=== PATIENT | female | born 1995 | race Hispanic/Latino ===

== ENCOUNTER 2017-10-29 09:28 | Emergency (ER) | payer OTHER ==
[2017-10-29 09:34] VITALS: TEMP 97.9; O2SAT 99; BMI 23.6
[2017-10-29] MEDS ORDERED: Sodium Chloride 0.9% 1,000 ML IV STA ×2 (10:02→13:12)
--- NOTE | 2017-10-29 10:07 | ED PDOC ---
HPI: General Adult Time Seen by Provider: 10/29/17 09:36 Chief Complaint (Nursing): Abdominal Pain History Per: Patient Additional Complaint(s): Pt. states this morning at 0400 she woke up from sleep with RUQ pain and at approximately 0600 she developed nausea and 1 episode of non-bloody/non-bilious vomiting. Nausea continued and she has been dry heaving but no vomiting since. Furthermore pt. also states she did eat latvian toast and latvian fries with vinegar at 0000 and went to sleep 1 hour after eating. Last BM was yesterday and was normal. Denies fever, chest pain, hematemesis, previous abdominal surgeries, cough, diarrhea, melena, hematochezia, BRBPR. Past Medical History Reviewed: Historical Data, Nursing Documentation, Vital Signs Vital Signs: Last Vital Signs Temp 97.9 F 10/29/17 09:33 Pulse 92 H 10/29/17 14:00 Resp 18 10/29/17 14:00 BP 110/70 10/29/17 14:00 Pulse Ox 99 10/29/17 14:00 - Surgical History Surgical History: No Surg Hx - Family History Family History: States: No Known Family Hx - Home Medications Home Medications: Ambulatory Orders Medication Instructions Recorded Famotidine [Pepcid] 20 mg PO DAILY PRN #10 tab 10/29/17 Ondansetron ODT [Zofran ODT] 4 mg PO TID #10 odt 10/29/17 - Allergies Allergies/Adverse Reactions: Allergies Allergy/AdvReac Type Severity Reaction Status Date / Time No Known Allergies Allergy Verified 10/29/17 10:01 Review of Systems ROS Statement: Except As Marked, All Systems Reviewed And Found Negative Gastrointestinal: Positive for: Nausea, Vomiting, Abdominal Pain Physical Exam - Physical Exam Appears: Positive for: Well, Non-toxic, No Acute Distress Head Exam: Positive for: ATRAUMATIC, NORMAL INSPECTION, NORMOCEPHALIC Skin: Positive for: Normal Color, Warm. Negative for: Rash Eye Exam: Positive for: Normal appearance. Negative for: Scleral icterus (b/l) ENT: Positive for: Normal ENT Inspection Neck: Positive for: Normal, Painless ROM Cardiovascular/Chest: Positive for: Chest Non Tender, Tachycardia. Negative for : Murmur Respiratory: Positive for: Normal Breath Sounds. Negative for: Respiratory Distress Gastrointestinal/Abdominal: Positive for: Soft, Tenderness (Mild RUQ tenderness) , Other (+Elizalde's sign). Negative for: Organomegaly, Guarding Back: Positive for: Normal Inspection. Negative for: L CVA Tenderness, R CVA Tenderness Neurologic/Psych: Positive for: Alert, Oriented - Laboratory Results Result Diagrams: 10/29/17 10:30 10/29/17 10:30 - ECG ECG: Positive for: Interpreted By Me O2 Sat by Pulse Oximetry: 99 - Progress ED Course And Treament: Labs, Abd US, pepcid 40mg IV, zofran 4mg IV, IV NS bolus x 1, VBG ordered. Patient placed on manager endoscopy due to tachycardia. Patient kept NPO. 1208 EKG: SR at [address]-T wave changes 1310 On re-evaluation, pt. reports feeling better but is requesting additional IV fluids as it made her feel better. Abd pain and nausea have resolved. IV NS bolus x 1 ordered. 1326 Abd US: Mild splenomegaly. . Mild fullness right renal collecting system of prevoid with resolution postvoid. No CVA tenderness b/l. Abd soft and non-tender to deep palpation. Reports no abdominal pain or back/flank pain. Disposition - Clinical Impression Clinical Impression: Abdominal pain - Patient ED Disposition Is Patient to be Admitted: No - Disposition Referrals: [facility] [Outside] [facility] [place] [Outside] Disposition: Routine/Home Disposition Time: 13:26 Condition: IMPROVED Additional Instructions: Return to ED immediately if symptoms return or worsen. Follow up with [facility] for further evaluation. Prescriptions: Famotidine [Pepcid] 20 mg PO DAILY PRN #10 tab PRN Reason: Dyspepsia Ondansetron ODT [Zofran ODT] 4 mg PO TID #10 odt Instructions: Nausea and Vomiting, Adult (DC), Stomach Ache and Stomach Upset Forms: [facility] (Bengali) Print Language: GERMAN
[2017-10-29 10:36] LABS: VENOUS BLOOD GAS BASE EXCESS 2.9 mmol/L (0.0-2.0); VENOUS BLOOD GAS PCO2 35 mmHg (40-60); VENOUS BLOOD GAS PO2 16 mm/Hg (30-55); VENOUS BLOOD PH 7.48 (7.32-7.43)
[2017-10-29 10:50] LABS: SQUAMOUS EPITHIAL 5 /hpf (0-5); URINE BACTERIA RARE (<OCC); URINE BILIRUBIN NEGATIVE (NEGATIVE); URINE BLOOD NEGATIVE (NEGATIVE); URINE CLARITY CLOUDY (Clear); URINE COLOR YELLOW (YELLOW); URINE GLUCOSE (UA) NEG (Normal); URINE LEUKOCYTE ESTERASE NEG Leu/uL (Negative); URINE NITRATE NEGATIVE (NEGATIVE); URINE PROTEIN 30 mg/dL (NEGATIVE); URINE UROBILINOGEN 0.2-1.0 mg/dL (0.2-1.0)
[2017-10-29 10:54] LABS: BASO % 0.1 % (0.0-2.0); EOS # 0.1 K/uL (0.0-0.7); EOS % 0.6 % (0.0-4.0); HEMOGLOBIN 14.5 g/dL (12.0-16.0); LYMPH # 0.4 K/uL (1.0-4.3); LYMPH % 3.1 % (20.0-40.0); MEAN CELL VOLUME 90.6 fl (81.0-99.0); MEAN CORPUSCULAR HEMOGLOBIN 30.7 pg (27.0-31.0); MEAN CORPUSCULAR HGB CONC 33.8 g/dL (33.0-37.0); MEAN PLATELET VOLUME 8.5 fl (7.2-11.7); MONO # 0.4 K/uL (0.0-0.8); MONO % 3.5 % (0.0-10.0); NEUT # 10.6 K/uL (1.8-7.0); NEUT % 92.7 % (50.0-75.0); PLATELET COUNT 235 K/uL (130-400); RBC 4.72 Mil/uL (3.80-5.20); RED CELL DISTRIBUTION WIDTH 12.2 % (11.5-14.5); WHITE BLOOD COUNT 11.4 K/uL (4.8-10.8)
[2017-10-29 10:56] LABS: CALCIUM 9.1 mg/dL (8.4-10.2); GFR AFRICAN-AMERICAN > 60; GFR NON-AFRICAN AMERICAN > 60; LIPASE 102 U/L (23-300)
[2017-10-29 10:57] LABS: ALB/GLOB RATIO 1.3 (1.0-2.1); ALBUMIN 4.8 g/dL (3.5-5.0); ALT/SGPT 21 U/L (9-52); AST/SGOT 35 U/L (14-36); BLOOD UREA NITROGEN 15 mg/dl (7-17)
[2017-10-29 12:30] LABS: BANDS 2 % (0-2); EOSINOPHIL 1 % (0-7); LYMPHOCYTE 5 % (20-50); MONOCYTE 2 % (0-10); NEUTROPHIL 90 % (42-75); PLATELET ESTIMATE NORMAL (NORMAL); TOTAL CELLS COUNTED 100
--- NOTE | 2017-10-29 13:18 | US ---
HISTORY: RUQ pain, vomiting COMPARISON: None. TECHNIQUE: Sonographic evaluation of the abdomen. FINDINGS: LIVER: Liver measures approximately 13.6 cm in CC dimension. . Smooth contour and normal echogenicity of the liver parenchyma. No mass. No intrahepatic bile duct dilatation. GALLBLADDER: Unremarkable. No gallstones. COMMON BILE DUCT: Common bile duct measures approximately 2 mm. No stones. No dilatation. PANCREAS: Unremarkable as visualized. No mass. No ductal dilatation. RIGHT KIDNEY: Measures 11.4 x 4.4 x 4.4cm. Normal echogenicity. No calculus, mass,. Mild fullness right renal collecting system prior to voiding of with resolution of postvoid. The LEFT KIDNEY: Measures 10.7 x 5.4 x 5.0cm. Normal echogenicity. No calculus, mass, or hydronephrosis. SPLEEN: Spleen is mildly enlarged measuring approximately 13 cm in greatest dimension. AORTA: No aneurysmal dilatation. IVC: Unremarkable. OTHER FINDINGS: None. IMPRESSION: Mild splenomegaly. . Mild fullness right renal collecting system of prevoid with resolution postvoid.
[2017-10-29 15:05] VITALS: BP 110/70; PULSE 92; RESP 18
--- NOTE | 2017-10-31 12:18 | CARD ---
APPROVED REPORT EKG Measurement Heart [id number] <Conclusion> Normal sinus rhythm Possible Left atrial enlargement Borderline ECG
== END 2017-10-29 14:31 | disposition home or self-care (01) ==
LOC: H.ER 09:28
DX: R10.9 Unspecified abdominal pain (principal); R11.2 Nausea with vomiting, unspecified; R16.1 Splenomegaly, not elsewhere classified
CPT/HCPCS: 76700; 80053; 81003; 81025; 82803; 83690; 85025; 93005; 96374; 96375; 99283; J2405; J7040